=== PATIENT | male | born 1930 | race Caucasian/White ===

== ENCOUNTER 2019-05-29 16:38 | Emergency (ER) | payer MEDICARE, OTHER, MEDICAID ==
[~2019-05-29] VITALS: Ht 170.2 cm; Wt 58.5 kg
[2019-05-29 17:02] LABS: BASOPHILS % (AUTO) 0.4 % (0.0-2.0); EOSINOPHILS # (AUTO) 0.1 K/uL (0.0-0.7); EOSINOPHILS % (AUTO) 0.8 % (0.0-7.0); HEMATOCRIT 38.6 % (36.7-47.1); LYMPHOCYTES # (AUTO) 1.3 K/uL (20.0-40.0); LYMPHOCYTES % (AUTO) 15.1 % (20.5-51.5); MEAN CORPUSCULAR HEMOGLOBIN 30.6 uug (23.8-33.4); MEAN CORPUSCULAR HGB CONC 34 g/dL (32.5-36.3); MEAN CORPUSCULAR VOLUME 90.5 fL (73.0-96.2); MONOCYTES # (AUTO) 0.4 K/uL (2.0-10.0); MONOCYTES % (AUTO) 4.6 % (0.0-11.0); NEUTROPHILS % (AUTO) 79.1 % (38.5-71.5); PLATELET COUNT (AUTO) 118 K/uL (152-348); RED BLOOD CELL COUNT(AUTO) 4.27 MIL/uL (4.06-5.63); WHITE BLOOD COUNT (AUTO) 8.8 K/uL (3.6-10.2)
[2019-05-29 17:09] LABS: CREATININE 1.1 mg/dL (0.6-1.3)
[2019-05-29] MEDS ORDERED: ATOR20TA PO (17:12)
[2019-05-29] MEDS ORDERED: MEMA7CAP PO (17:12)
[2019-05-29] MEDS ORDERED: DONE10TA11 PO (17:12)
[2019-05-29] MEDS ORDERED: MECL-182 PO (17:12)
[2019-05-29] MEDS ORDERED: METF-440 PO (17:12)
[2019-05-29] MEDS ORDERED: FLUO20CA42 PO (17:12)
[2019-05-29] MEDS ORDERED: ASPI-605 PO (17:12)
[2019-05-29] MEDS ORDERED: TAMS-3 PO (17:12)
[2019-05-29 17:16] LABS: BILIRUBIN,DIRECT 0.1 mg/dL (0.0-0.2); BILIRUBIN,TOTAL 0.4 mg/dL (0.2-1.0)
--- NOTE | 2019-05-29 18:10 | NUR ---
Patient discharged to home in stable conditon. Written and verbal after care instructions given. Patient verbalizes understanding of instructions.PT SAYS FEELS BETTER, READY TO GO HOME. PT ACCOMPANIED BY SON. PT NOT DRIVING. Addendum: 05/29/19 at 1840 by PAULA COPY OF ALL THE STUDIES PROVIDED FOR PT FOR FOLLOW UP WITH PMD
[2019-05-29 18:40] VITALS: BP 141/61
== END 2019-05-29 18:10 | disposition home or self-care (01) ==
LOC: ER 16:39
DX: R42 Dizziness and giddiness (principal); R11.2 Nausea with vomiting, unspecified; T43.8X5A Adverse effect of other psychotropic drugs, initial encounter; T44.1X5A Adverse effect of other parasympathomimetics [cholinergics], initial encounter; Z79.82 Long term (current) use of aspirin; Z79.899 Other long term (current) drug therapy; Y92.89 Other specified places as the place of occurrence of the external cause
CPT/HCPCS: 36415; 70030-TC; 71045; 85025; 87400; 93005; A4663